=== PATIENT | female | born 1980 | race Caucasian/White ===

== ENCOUNTER → 2018-10-27 09:56 | Outpatient (CLI) | payer OTHER, SELFPAY ==
[2018-09-17 09:25] VITALS: BMI 26.0
--- NOTE | 2018-10-27 10:05 | BI_ITS ---
MAMMOGRAPHY - BILATERAL SCREENING REASON FOR EXAM: Female, 38 years old. Routine annual screening examination. PERTINENT HISTORY: Non-contributory. TECHNIQUE: Digital bilateral breast triny (3D mammographic acquisition) in the CC and MLO projections. 2-D mediolateral oblique (MLO) and craniocaudad (CC) views of both breasts were obtained. CAD: Full Field Digital Mammography with Computer Added Detection was performed. COMPARISON: None. Baseline examination. FINDINGS: Breast Composition: The breasts are extremely dense, which lowers the sensitivity of mammography. There are no dominant masses or suspicious calcifications. Small left axillary lymph nodes. No other significant abnormalities are identified. BI/SCREEN MAMM (CAD) W/TRINY BILAT IMPRESSION: Negative screening mammogram. Yearly followup mammogram recommended. (A) ASSESSMENT CATEGORY: BIRADS Category 2: Benign. A letter regarding these results will be sent to the patient by the facility within 30 days. Approximately 10% of breast cancers are not detected by mammography. A normal mammogram should not delay biopsy of a clinically suspicious abnormality. [id number] Electronically Signed: Ld Antunez MD at 9:15 EST , Service support ,
== END ==
PROVIDERS: Family Provider Family Medicine; PCP Family Medicine; Referring Provider Obstetrics & Gynecology; Visit Provider Obstetrics & Gynecology
DX: Z12.31 Encounter for screening mammogram for malignant neoplasm of breast (principal)
CPT/HCPCS: 77063; 77067

== ENCOUNTER → 2019-09-30 | Outpatient (CLI) | payer OTHER, SELFPAY ==
[2019-09-30 09:50] VITALS: BMI 26.0
[2019-10-04 13:05] LABS: HPV APTIMA, High Risk Negative (Negative)
== END | disposition home or self-care (01) ==
LOC: LABSPEC 14:44
PROVIDERS: PCP Family Medicine; Visit Provider Obstetrics & Gynecology
DX: Z12.4 Encounter for screening for malignant neoplasm of cervix (principal)
CPT/HCPCS: 87624; 88175; G0145

== ENCOUNTER → 2019-10-08 | Outpatient (CLI) | payer OTHER, SELFPAY ==
[2019-09-30 09:50] VITALS: BMI 26.0
[2019-10-08 10:58] LABS: Cholesterol 178 mg/dL (200); Glucose 104 mg/dL (74-106); High Density Lipoprotein 70 mg/dL; Thyroid Stim Hormone (TSH) 3.67 uIU/mL (0.358-3.74); Triglycerides 125 mg/dL; Very Low Density Lipoprotein 25 mg/dL (5-40)
== END | disposition home or self-care (01) ==
LOC: PAVLAB 09:08
PROVIDERS: PCP Family Medicine; Referring Provider Obstetrics & Gynecology; Visit Provider Obstetrics & Gynecology
DX: Z13.1 Encounter for screening for diabetes mellitus (principal); Z13.220 Encounter for screening for lipoid disorders; Z13.29 Encounter for screening for other suspected endocrine disorder
CPT/HCPCS: 36415; 80061; 82947; 84443

== ENCOUNTER → 2019-10-29 | Outpatient (CLI) | payer OTHER, SELFPAY ==
[2018-09-17 09:25] VITALS: BMI 26.0
[2019-09-30 09:50] VITALS: BMI 26.0
--- NOTE | 2019-10-29 11:20 | BI_ITS ---
MAMMOGRAPHY - BILATERAL SCREENING REASON FOR EXAM: Female, 39 years old. Routine annual screening examination. PERTINENT HISTORY: Bilateral screening TECHNIQUE: Digital bilateral breast triny (3D mammographic acquisition) in the CC and MLO projections. 2-D mediolateral oblique (MLO) and craniocaudad (CC) views of both breasts were obtained. CAD: Full Field Digital Mammography with Computer Added Detection was performed. COMPARISON: Previous mammogram obtained on 10/27/2018 FINDINGS: Breast Composition: Dense central breast fracture There are no dominant masses or suspicious calcifications. No other significant abnormalities are identified. BI/SCREEN MAMM (CAD) W/TRINY BILAT IMPRESSION: Stable bilateral screening mammogram. Yearly follow-up mammogram recommended. (A) ASSESSMENT CATEGORY: BIRADS Category 1: Negative. A letter regarding these results will be sent to the patient by the facility within 30 days. Approximately 10% of breast cancers are not detected by mammography. A normal mammogram should not delay biopsy of a clinically suspicious abnormality. [id number] Electronically Signed: Raciel Bobby, at 17:08 EST Tel , Service support ,
== END | disposition home or self-care (01) ==
LOC: OPBI 11:20
PROVIDERS: PCP Family Medicine; Referring Provider Obstetrics & Gynecology; Visit Provider Obstetrics & Gynecology
DX: Z12.31 Encounter for screening mammogram for malignant neoplasm of breast (principal)
CPT/HCPCS: 77063; 77067

== ENCOUNTER → 2020-10-26 09:12 | Outpatient (CLI) | payer OTHER, SELFPAY ==
[2020-10-01 11:53] VITALS: BMI 28.0
--- NOTE | 2020-10-26 09:24 | US_ITS ---
STUDY: ULTRASOUND BREAST - LEFT REASON FOR EXAM: Female, 40 years old. Palpable lump left breast. TECHNIQUE: Axial and longitudinal images of the LEFT breast were performed with a high resolution ultrasound transducer. # OF IMAGES: 31 COMPARISON: Comparison is made with prior mammogram done earlier today. FINDINGS: LEFT Breast: The upper outer quadrant of the left breast was examined by ultrasound. No sonographic abnormalities US/Breast Limited Unilateral IMPRESSION: No sonographic abnormality is seen. ASSESSMENT CATEGORY: BIRADS Category 1: Negative. A letter regarding these results will be sent to the patient by the facility within 30 days. Electronically Signed: Ld Antunez MD at 12:23 EST , Service support ,
--- NOTE | 2020-10-26 09:24 | BI_ITS ---
MAMMOGRAPHY - BILATERAL DIAGNOSTIC REASON FOR EXAM: Female, 40 years old. Left breast lump. PERTINENT HISTORY: Grandmother with breast cancer. TECHNIQUE: Digital bilateral breast atiya (3D mammographic acquisition) in the CC and MLO projections. 2-D mediolateral oblique (MLO) and craniocaudad (CC) views of both breasts were obtained. CAD: Full Field Digital Mammography with Computer Added Detection was performed. COMPARISON: Comparison is made with prior examination dated 10/29/2019 and 10/27/2018. FINDINGS: Breast Composition: The breasts are extremely dense, which lowers the sensitivity of mammography. There are no dominant masses or suspicious calcifications. Stable benign-appearing bilateral axillary lymph nodes. No other significant abnormalities are identified. There has been no significant change since the prior study. BI/DIAG MAMM W/CAD, BILAT IMPRESSION: Stable bilateral diagnostic mammogram. With the patient''s history of a palpable lump in the left breast, correlation with ultrasound is recommended. ASSESSMENT CATEGORY: BIRADS Category 0: Incomplete. Need additional imaging evaluation. A letter regarding these results will be sent to the patient by the facility within 30 days. Approximately 10% of breast cancers are not detected by mammography. A normal mammogram should not delay biopsy of a clinically suspicious abnormality. Electronically Signed: Ld Antunez MD at 11:28 EST , Service support ,
== END ==
PROVIDERS: PCP Family Medicine; Referring Provider Obstetrics & Gynecology; Visit Provider Obstetrics & Gynecology
DX: N63.20 Unspecified lump in the left breast, unspecified quadrant (principal)
CPT/HCPCS: 76642; 77062; 77066; G0279

== ENCOUNTER → 2022-02-03 | Outpatient (CLI) | payer OTHER, SELFPAY ==
--- NOTE | 2022-02-03 10:10 | BI_ITS ---
MAMMOGRAPHY - BILATERAL SCREENING REASON FOR EXAM: Female, 41 years old. Routine annual screening examination. PERTINENT HISTORY: Grandmother with breast cancer. TECHNIQUE: Digital bilateral breast triny (3D mammographic acquisition) in the CC and MLO projections. 2-D mediolateral oblique (MLO) and craniocaudad (CC) views of both breasts were obtained. CAD: Full Field Digital Mammography with Computer Added Detection was performed. COMPARISON: Comparison is made with prior study dated 10/26/2020 and 10/29/2019. FINDINGS: Breast Composition: The breasts are extremely dense, which lowers the sensitivity of mammography. There are no dominant masses or suspicious calcifications. Stable small bilateral axillary lymph nodes. No other significant abnormalities are identified. There has been no significant change since the prior study. BI/SCRN MAMM (CAD)W/TRINY BILAT IMPRESSION: Stable bilateral screening mammogram. Yearly follow-up mammogram recommended. (A) ASSESSMENT CATEGORY: BIRADS Category 2: Benign. A letter regarding these results will be sent to the patient by the facility within 30 days. Approximately 10% of breast cancers are not detected by mammography. A normal mammogram should not delay biopsy of a clinically suspicious abnormality. [id number] Electronically Signed: Ld Antunez MD at 11:06 EDT ,
[2022-02-03 12:02] LABS: Thyroid Stim Hormone (TSH) 1.64 uIU/mL (0.358-3.74)
[2022-02-03 13:24] LABS: Vitamin D,25 Hydroxy 64.4 ng/mL
[2022-02-09 21:07] LABS: HPV APTIMA, High Risk Negative (Negative)
== END | disposition home or self-care (01) ==
PROVIDERS: Referring Provider Obstetrics & Gynecology; Visit Provider Obstetrics & Gynecology
DX: Z12.31 Encounter for screening mammogram for malignant neoplasm of breast (principal); Z12.4 Encounter for screening for malignant neoplasm of cervix; Z13.29 Encounter for screening for other suspected endocrine disorder; Z13.21 Encounter for screening for nutritional disorder
CPT/HCPCS: 36415; 77063; 77067; 82306; 84443; 87624; 88175; G0145

== ENCOUNTER → 2023-02-27 | Outpatient (CLI) | payer OTHER, SELFPAY ==
--- NOTE | 2023-02-27 10:31 | BI_ITS ---
MAMMOGRAPHY - BILATERAL SCREENING REASON FOR EXAM: Female, 42 years old. Routine annual screening examination. PERTINENT HISTORY: Grandmother with breast cancer. TECHNIQUE: Digital bilateral breast triny (3D mammographic acquisition) in the CC and MLO projections. 2-D mediolateral oblique (MLO) and craniocaudad (CC) views of both breasts were obtained. CAD: Full Field Digital Mammography with Computer Added Detection was performed. COMPARISON: Comparison is made with prior study dated February 03, 2022 and October 26, 2020. FINDINGS: Breast Composition: The breasts are extremely dense, which lowers the sensitivity of mammography. There are no dominant masses or suspicious calcifications. Stable small benign-appearing bilateral axillary lymph nodes. No other significant abnormalities are identified. There has been no significant change since the prior study. BI/SCRN MAMM (CAD)W/TRINY BILAT IMPRESSION: Stable bilateral screening mammogram. Yearly follow-up mammogram recommended. (A) ASSESSMENT CATEGORY: BIRADS Category 2: Benign. A letter regarding these results will be sent to the patient by the facility within 30 days. Approximately 10% of breast cancers are not detected by mammography. A normal mammogram should not delay biopsy of a clinically suspicious abnormality. [id number] Electronically Signed: Ld Antunez MD at 12:18 EDT ,
[2023-03-02 16:09] LABS: HPV APTIMA, High Risk Negative (Negative)
== END | disposition home or self-care (01) ==
PROVIDERS: Referring Provider Obstetrics & Gynecology; Visit Provider Obstetrics & Gynecology
DX: Z12.31 Encounter for screening mammogram for malignant neoplasm of breast (principal); Z12.4 Encounter for screening for malignant neoplasm of cervix
CPT/HCPCS: 77063; 77067; 87624; 88175; G0145

== ENCOUNTER → 2024-03-04 | Outpatient (CLI) | payer MEDICAID, SELFPAY ==
--- NOTE | 2024-03-04 14:00 | BI_ITS ---
MAMMOGRAPHY - BILATERAL SCREENING 3-D TOMOSYNTHESIS REASON FOR EXAM: Female, 43 years old. breast cancer screening PERTINENT HISTORY: No significant family history. TECHNIQUE: 2-D mammograms and 3-D Tomosynthesis of the breast (s) were performed. CAD was performed. COMPARISON: 03/01/2023 FINDINGS: The breast composition is Extermely dense tissue. Scattered benign calcifications are seen. No dense spiculated masses or suspicious microcalcifications are identified. No architectural distortion is identified. There is no skin thickening or retraction. There has been no significant change since the prior study. BI/SCRN MAMM (CAD)W/TRINY BILAT IMPRESSION: No mammographic signs of malignancy. Routine yearly mammograms recommended. ASSESSMENT CATEGORY: BIRADS Category 1: Negative. A letter regarding these results will be sent to the patient by the facility within 30 days. FOLLOW UP RECOMMENDATION: Yearly follow up mammogram recommended. (A) Approximately 10% of breast cancers are not detected by mammography. A normal mammogram should not delay biopsy of a clinically suspicious abnormality. Electronically Signed: Pierre Reyes MD at 16:41 EDT ,
== END | disposition home or self-care (01) ==
LOC: OPBI 14:00
PROVIDERS: Referring Provider Obstetrics & Gynecology; Visit Provider Obstetrics & Gynecology
DX: Z12.31 Encounter for screening mammogram for malignant neoplasm of breast (principal)
CPT/HCPCS: 77063; 77067

== ENCOUNTER → 2025-03-05 | Outpatient (CLI) | payer BC, SELFPAY ==
--- NOTE | 2025-03-05 10:45 | BI_ITS ---
EXAM: SCRN MAMM (CAD)W/TRINY BILAT DATE: 03/05/2025 CLINICAL HISTORY: F, Age 44 y/o , SCREEN FOR BREAST CANCER TECHNIQUE: SCRN MAMM (CAD)W/TRINY BILAT COMPARISON: Prior exam(s) dated 03/04/2024, 02/27/2023, 02/03/2022. FINDINGS: TISSUE DENSITY: The breasts are extremely dense, which lowers the sensitivity of mammography. The mammogram demonstrates that the patient has dense breasts. Supplemental screening with whole breast ultrasound or MRI may be considered for further evaluation. Bilateral Breast Mammographic Findings: No significant masses, calcifications or other abnormalities are identified. BI/SCRN MAMM (CAD)W/TRINY BILAT IMPRESSION: There is no mammographic evidence of malignancy. OVERALL FINAL ASSESSMENT BI-RADS 1: NEGATIVE. RECOMMEND ANNUAL MAMMOGRAPHIC SCREENING. RECOMMENDATION: Routine annual follow-up in 1 Year A letter with findings and recommendations will be mailed to the patient. Reading Location: [id number]
--- OUTSIDE RECORDS SUMMARY | 2025-03-05 21:38 | XMS RPT_ITS | CCD ---
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 Vanessa Reeder Attending Provider [phone] Care Physician, No Primary Primary Care Provider Unavailable Care Physician, No Primary Referring Provider Un available Care Physician, No Primary Primary Care Provider Unavailable Care Physician, No Primary Referring Provider Un available Dr. Vanessa Owens Attending Provider [phone] Care Physician, No Primary Referring Unava ilable Marcanthsarah, Vanessa Attending Unavailable Care Physician, No Primary Primary Care Unava ilable Care Physician, No Primary Referring Unava ilable Marcanthony, Vanessa Attending Unavailable Care Physician, No Primary Primary Care Unava ilable Care Physician, No Primary Primary Care Unava ilable Marcanthony, Vanessa Attending Unavailable Marcanthsarah, Vanessa Referring Unavailable Marcanthony, Vanessa Attending Unavailable Marcanthsarah, Vanessa Referring Unavailable Care Physician, No Primary Primary Care Unava ilable Care Physician, No Primary Primary Care Provider Unavailable Dr. Vanessa Owens MD Attending Provider Dr. Vanessa Owens MD Referring Provider [phone] Care Physician, No Primary Referring Provider Un available Allergies Allergy Classification Reported Allergen(s) Allergy Type Date of Onset Reaction(s) Facility (2 sources) erythromycin Drug Allergy 7 [facility] (2 sources) Cat Propensity to adverse reactions 6 [facility] (5 sources) Erythromycin Drug Allergy 5 GI Upset [facility] Work Phone: (2 sources) Fish Propensity to adverse reactions 6 [facility] (2 sources) SEASONAL [Other] Propensity to adverse reactions 6 [facility] (1 source) Erythromycin Drug Allergy 4 [facility] Repository Medications Current Medications Medication Drug Class(es) Dates Sig (Normalized) Sig (Original) Desogestrel-Ethinyl Estradiol (8 sources) Progestin, Estrogen Start: 12-25-2024 Desogestrel-Ethinyl Estradiol (Apri) 0.15-0.03 mg tablet Active 1 {tbl} PO daily 84 4 December 25, 2024 11:02am take only active pills discard inactive start new pack immediately Start: 02-21-2024 End: 12-25-2024 Desogestrel-Ethinyl Estradio l (Apri) 0.15-0.03 mg tablet Discontinued 1 {tbl} PO daily 84 4 February 21, 2024 3:08pm December 25, 2024 11:02am take only active pills discard inactive start new pack immediately Start: 10-12-2023 End: 02-21-2024 Desogestrel-Ethinyl Estradio l (Apri) 0.15-0.03 mg tablet Discontinued 1 {tbl} PO daily 84 October 12, 2023 9:45am February 21, 2024 3:08pm take only active pills discard inactive start new pack immediately Start: 10-11-2023 End: 10-12-2023 Desogestrel-Ethinyl Estradio l (Apri) 0.15-0.03 mg tablet Discontinued 1 {tbl} PO daily 84 October 11, 2023 1:45pm October 12, 2023 9:45am take only active pills discard inactive start new pack immediately Start: 08-05-2022 End: 10-11-2023 Desogestrel-Ethinyl Estradio l (Apri) 0.15-0.03 mg tablet Discontinued 1 {tbl} PO daily 84 August 05, 2022 5:24pm October 11, 2023 1:45pm take only active pills discard inactive start new pack immediately Start: 08-05-2022 Desogestrel-Et hinyl Estradiol (Apri) 0.15-0.03 mg tablet Active 1 TABLET PO daily 84 August 05, 2022 5:24pm take only active pills discard inactive start new pack immediately Start: 06-17-2022 End: 08-05-2022 Desogestrel-Ethinyl Estradio l (Apri) 0.15-0.03 mg tablet Discontinued 1 {tbl} PO daily 31 08June 17, 2022 12:00am August 05, 2022 5:25pm take only active pills discard inactive start new pack immediately Start: 06-17-2022 End: 08-05-2022 Desogestrel-Ethinyl Estradio l (Apri) 0.15-0.03 mg tablet Discontinued 1 TABLET PO daily June 17, 2022 12:00am August 05, 2022 5:25pm take only active pills discard inactive start new pack immediately Completed/Discontinued Medications Medication Drug Class(es) Dates Sig (Normalized) Sig (Original) medroxyPROGESTERone acetate 10 mg oral tablet (4 sources) Progestin Start: End: take 1 tablet by mouth every month Medroxyprogesterone (Provera) 10 mg tablet Discontinued 10 mg PO daily 06 15June 03, 2022 5:07pm June 17, 2022 4:28pm take for ten days out of every month Start: 04-22-2022 End: 06-03-2022 Medroxyprogesterone (Provera ) 10 mg tablet Discontinued 10 mg PO daily 01 10April 22, 2022 12:00am June 03, 2022 5:09pm take for five days if neg preg test and no menses after 35-40 days Problems Problem Classification Problem Date Documented Date Episodic/Chronic Cancer of cervix (1 source) Atypical squamous cells of undetermined significance on cytologic smear of cervix (ASC-US); Translations: [Papanicolaou smear of cervix with atypical squamous cells of undetermined significance (ASC-US)] Episodic Diabetes mellitus without complication (1 source) Hyperglycemia; Translations: [Impaired fasting glucose] Episodic Menstrual disorders (2 sources) Oligomenorrhea; Translations: [Oligomenorrhea, unspecified] 06-03-2022 Chronic Comment on above: likely perimenopausa l, cyclic provera ordered. Nonmalignant breast conditions (4 sources) Breast lump; Translations: [Unspecified lump in the left breast, unspecified quadrant] 06-02-2022 Episodic Comment on above: increased right mansi st density- reviewed with patient to follow and alert if feels anything clinically significant, screening imaging WNL diag mamm and us ord ered Other female genital disorders (5 sources) Cervical atypism; Translations: [Dysplasia of cervix uteri, unspecified] Onset: 07-01-2021 07-01-2021 Episodic Comment on above: HPV negative, pap in 2022 Other nutritional; endocrine; and metabolic disorders (1 source) Body mass index 25-29 - overweight; Translations: [Overweight] Episodic Other screening for suspected conditions (not mental disorders or infectious disease) (2 sources) Encounter for screening mammogram for malignant neoplasm of breast; Translations: [Encounter for screening mammogram for malignant neoplasm of breast] Onset: 03-14-2024 Episodic Residual codes; unclassified (3 sources) History of fourth degree perineal laceration; Translations: [Personal history of other complications of , childbirth and the puerperium] 02-03-2022 Episodic Residual codes; unclassified (2 sources) Personal history of other complications of , childbirth and the puerperium; Translations: [Personal history of other genital system and obstetric disorders] Episodic Thyroid disorders (4 sources) Goiter; 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 [place] [address] OFFICE VISIT Date of Service: 03/04/24 MR#: [id number] Acct: [id number] Name: NATA BURNS Rep #: [id number] : 1980 Provider: Dr. 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 Vanessa Owens MD) History of headache Family History Mother Diabetes Social History (Updated 03/04/24 @ 14:46 by Katrin Clay) number of children: 3 current occupational status: unemployed current occupation: not currently Smoking Status: Never smoker alcohol intake: current details: social substance use type: does not use caffeine: Yes what type of physical activity do you participate in: none seatbelt use: always do you feel safe at home: Yes additional social history: Stephon- Kimmy josy History 3 Elective abortions Hx Para 3 Spontaneous abortions Hx # Term Pregnancies Ectopic pregnancies Hx # Pregnancies Multiple births # of living children Past Pregnancies Del. Date Name GA/Weeks Outcome Route Bth Weight Gen Labor Lgth Anesthesia Del Locatn Provider FOB Unknown 2002 Onesimo 40 live - full term 6lbs 14oz Male [facility] Bare Unknown Augusto live - full term Male [facility] Canfie ld Unknown 2010 Keyla 40 live - full term 8lbs 4oz Female [facility] CHERELLE, Tizanno HPI Encounter for routine gynecological examination Details: NATA BURNS is a 43 year old who presents for annual exam. lost to pancreatic cancer, coping appropriately. Last PAP: 2022 History of abnormal PAP: Last mammogram: today History of abnormal mammogram: Colon cancer screening: due Other preventative health care screenings: no PCP Female Reproductive History Cycle Length: 21-35 Bleeding Duration: 5 Questions: metorrhagia: No, sexually active: Yes, dyspareunia: No and PCB: No Menopausal Symptoms: No hot flashes, No night sweats, No weight change, Yes mood changes, No difficulty concentrating, Yes sleep problems and No change in libido ROS Const Constitutional: Reports as per HPI; Denies fatigue, increased appetite, poor appetite, night sweats, weight gain or weight loss Cardio Card: Denies chest pain Resp Resp: Denies cough or dyspnea GI GI: Reports as per HPI; Denies abdominal pain, bloating, constipation, nausea or vomiting : Reports as per HPI and other; Denies difficulty voiding, dysuria, hematuria, hot flashes, nipple discharge, pelvic pain, prolapse symptoms, urinary frequency, urinary incontinence, urinary urgency, vaginal discharge, vaginal dryness, vaginal odor or vaginal pruritus Skin Skin/Breast: Denies changing lesions, breast mass, breast pain, breast skin changes or nipple discharge Psych Psych: Denies anxiety, change in libido, depression or difficulty concentrating Exam Const General: cooperative, healthy appearing, comfortable, no acute distress, well developed and well groomed [facility] Head: normal to inspection and normocephalic Ears: hearing grossly normal bilaterally and external ears normal Nose: external nose normal Face and sinus: normal facial exam Neck Neck: normal visual inspection, full ROM and no lymphadenopathy Thyroid: thyroid normal Chest Chest palpation inspection: normal inspection of the chest Breast inspection: normal inspection of the breasts and normal inspection of the axillae Breast palpation: palpation of the breasts abnormal (increased density right upper), normal palpation of the axillae and no axillary lymphadenopathy Resp Effort Inspection: normal respiratory effort GI Inspection: normal to inspection and non-distended Palpation: soft, no hepatosplenomegaly and no guarding General: bladder normal to palpation External Female Exam: normal external appearance, normal appearance of the urethra and no lesions Urethra: normal appearance of the urethra and normal palpation Speculum Exam - Vagina: normal appearance of the vagina and normal vaginal dis (more content not included)... Normal [facility] SCRN MAMM (CAD)W/TRINY [place] n 03-04-2024 SCRN MAMM (CAD)W/TRINY RADHA [facility] Imaging Services [address] [facility] [place] [address] SCRN MAMM (CAD)W/TRINY BILAT MR#: [id number] Acct: [id number] Name: NATA BURNS Rep #: [id number] : 1980 F 43 From: Pierre Reyes MD PCP: Care Physician,No Primary Status: REG CLI Study: SCRN MAMM (CAD)W/TRINY BILAT Date of Exam: 09/27 Exam# [id number] Ordering Dr: Vanessa Owens [id number] MAMMOGRAPHY - BILATERAL SCREENING 3-D TOMOSYNTHESIS REASON FOR EXAM: Female, 43 years old. breast cancer screening PERTINENT HISTORY: No significant family history. TECHNIQUE: 2-D mammograms and 3-D Tomosynthesis of the breast (s) were performed. CAD was performed. COMPARISON: 03/01/2023 FINDINGS: The breast composition is Extermely dense tissue. Scattered benign calcifications are seen. No dense spiculated masses or suspicious microcalcifications are identified. No architectural distortion is identified. There is no skin thickening or retraction. There has been no significant change since the prior study. BI/SCRN MAMM (CAD)W/TRINY BILAT IMPRESSION: No mammographic signs of malignancy. Routine yearly mammograms recommended. ASSESSMENT CATEGORY: BIRADS Category 1: Negative. A letter regarding these results will be sent to the patient by the facility within 30 days. FOLLOW UP RECOMMENDATION: Yearly follow up mammogram recommended. (A) Approximately 10% of breast cancers are not detected by mammography. A normal mammogram should not delay biopsy of a clinically suspicious abnormality. Electronically Signed: Pierre Reyes MD at 16:41 EDT , CC: Dr. Vanessa Owens MD; No Primary Care Physician Delivery Recruiter: Signed Normal [facility] Cervical or vagninal specime n microscopic examination by cytology stain (reported asOrdered By: Vanessa Owens on 02-27-2023 Cytology report Cyto stain Doc (Cvx/Vag) Comment . [facility] Comment on above: The Pap smear is a s creening test designed to aid in thedetection of premalignant and malignant conditions of theuterine cervix. It is not a diagnostic procedure andshould not be used as the sole means of detecting cervicalcancer. Both false-positive and false-negative reports dooccur. Detection in cervical specim en of any of human papilloma virus (HPV) 16, 18, 31, 33,Ordered By: Vanessa Owens on 02-27-2023 HPV 16+18+31+33+35+39+45+ 51+52+56+58+59+66+68 DNA Probe+sig amp Ql (Cvx) Negative Negative [facility] Comment on above: This nucleic acid am plification test detects fourteen high- risk HPV types (16,18,31,33,35,39,45,51,52,56,58,59,66,68)without differentiation. Laboratory - CytologyOrdered By: Vanessa Owens on 02-27-2023 Traveling Construction Superintendent Cyto stain Nom (Cvx/Vag) [ID] Comment . [facility] Comment on above: Chirag Mora, Cytotec hnologist Laboratory - Miscellaneous t estsOrdered By: Vanessa Owens on 02-27-2023 Service comment (Unsp spec) [Interp] Comment . [facility] Comment on above: This liquid based Th inPrep(R) pap test was screened withthe use of an image guided system. Service comment (Unsp spec) [Interp] . . [facility] Liquid-based cerv Pap + CT/G C by MANISHA w reflex to high-risk HPV for ASCUSOrdered By: Vanessa Owens on 02-27-2023 Cytology report Cyto stain.thin prep Doc (Cvx/Vag) Comment . [facility] Comment on above: Criteria not met, HP V Genotype not performed.Performed at: [address] [id number] Director: Grecia Jensen MD, Phone: [phone] at: [facility] Lab[address] [id number] Director: Jeanie Rollins MD, Phone: [phone] at: =G - [facility] [address] [place] [id number] Director: Jeanie Rollins MD, Phone: [phone] No Panel InformationOrdered By: Vanessa Owens on 02-27-2023 Pathology report final diagnosis Narrative Comment . [facility] Comment on above: NEGATIVE FOR INTRAEP ITHELIAL LESION OR MALIGNANCY. Jennifer 02-14-2022 JOEN Telephone (FAMPWS) NATA BURNS ([id number]) 1980 F Date Time Provider Department 02/14/22 WADR LINDSAY During your visit today, we recorded the following information about you: Ward Lindsay APRN.HARPER DIAZ 02/14/2022 5:39 PM Signed Team - Inform patient she has increased blood sugar. She is borderline prediabetic. Need to adhere to a low-cholesterol, low-fat diet, low carb diet. Therapeutic lifestyle changes is recommended. Please ensure that they are eating lots of fruits and vegetables, eat lean cuts of meat, and limit surgry drinks. Perform regular physical activity and limit fast food. Recheck labs in 12 months. Ward Lindsay APRN.CNP, DNP Brittany Workman Cma 02/15/2022 8:33 AM Signed [employer] message sent to patient Daysi Pena Cma Allergies As of Date: 02/14/2022 Noted Allergy Reaction CATS 05/05/2006 ERYTHROMYCIN 07/25/2005 8 - GI Upset FISH 05/05/2006 SEASONAL [Other] 05/05/2006 Date Reviewed: 01/24/2022 Reviewed by: Daysi Pena Cma - Fully Assessed Reason for Visit: Results [95] Primary Visit Diagnosis:Impaired fasting glucose [R73.01] Problem List As Of Date 02/14/2022 Noted Resolved Supervision of other normal [Z34.80] 11/17/2010 07/29/2013 Cervical atypia [N87.9] 07/01/2021 Normal pelvic exam [Z01.419] 07/05/2017 Impaired fasting glucose [R73.01] 02/14/2022 Encounter Status:Closed by WORKMAN DAYSI CALL on 02/15/22 Normal [facility] Glucose p fast SerPl-mCncon 02-09-2022 Glucose post fast [Mass/Vol] 116 mg/dL High 74-99 [facility] Comment on above: Order Comment: Speci men Type: BLOOD SPECIMEN Ordering Facility: [facility] Address: [address] [place] [address] Result Comment: [place] Diabetes Association guidelines state that a diabetes mellitus diagnosis is preliminarily made when the fasting plasma glucose meets or exceeds 126 mg/dL. In the absence of unequivocal hyperglycemia, results should be confirmed with repeat testing. Patients are at increased risk for diabetes mellitus (prediabetes) when the fasting glucose is 100 to 125 mg/dL. Performed By: #### 1 558-6 #### [facility] CLIA [id number] [address] [place] [address] [place] HGB A1Con 02-09-2022 Average glucose Estimated from glycated hemoglobin (Bld) [Mass/Vol] 111 mg/dL Normal [facility] Comment on above: Order Comment: Speci men Type: BLOOD SPECIMEN Ordering Facility: [facility] Address: [address] [place] [address] Result Comment: eAG: (Estimated average glucose) is a calculated value from HgbA1c and is inside sales account representative of the average blood glucose level in the last 2-3 month period. Performed By: #### H BA1C #### [facility] CLIA [id number] [address] [place] [address] [place] HbA1c (Bld) [Mass fraction] 5.5 % Normal 4.3-5.6 [facility] Comment on above: Order Comment: Speci men Type: BLOOD SPECIMEN Ordering Facility: [facility] Address: [address] [place] [address] Result Comment: [place] Diabetes Association guidelines indicate that patients with HgbA1c in the range 5.7-6.4% are at increased risk for development of diabetes, and intervention by lifestyle modification may be beneficial. HgbA1c greater or equal to 6.5% is considered diagnostic of diabetes. Performed By: #### H BA1C #### [facility] CLIA [id number] [address] [place] [address] [address] [facility] No Panel Informationon 02-03 Thyroid Stimulating Hormone (TSH) 1.64 uIU/mL 0.358-3.74 [facility] Work Phone: Vitamin D 25-Hydroxy 64.4 ng/mL [facility] Work Phone: Comment on above: Vitamin D 25(OH) Sta tus Range Deficiency <20 ng/mL (50nmol/L) Insufficiency 20 - 30 ng/mL (50 - 75 nmol/L) Sufficiency 30 - 100 ng/mL (75 - 250 nmol/L) Toxicity >100 ng/mL (>250 nmol/L) Jennifer 01-28-2022 MARIBEL Telephone ([place]) NATA BURNS ([id number]) 1980 F Date Time Provider Department 01/28/22 WARD LINDSAY During your visit today, we recorded the following information about you: Ward Lindsay APRN.HARPER DIAZ 01/28/2022 4:15 PM Signed Team - Inform the patient that her cholesterol levels look good. Her fasting blood sugar though was elevated. She needs to perform a repeat fasting blood sugar and hemoglobin A1c. She can complete this next week. ASSESSMENT/PLAN: 1. Elevated fasting glucose - ICD9: 790.21, ICD10: R73.01 - HGB A1C - GLUCOSE FASTING BLD Ward Lindsay APRN.REGISTERED DIETICIAN, DNP [facility] Linda Lyons RN 01/28/2022 4:36 PM Signed Pt called and is notified of providers results and instructions. Pt voices understanding. Linda Lyons RN Allergies As of Date: 01/28/2022 Noted Allergy Reaction CATS 05/05/2006 ERYTHROMYCIN 07/25/2005 8 - GI Upset FISH 05/05/2006 SEASONAL [Other] 05/05/2006 Date Reviewed: 01/24/2022 Reviewed by: Daysi Pena Immigration Services Officer - Fully Assessed Reason for Visit: Results [95] Orders [681] Primary Visit Diagnosis:Elevated fasting glucose [R73.01] Order(s):HGB A1C [EZUKB5B] Order #: [id number] FUTURE GLUCOSE FASTING BLD [SQGLF] Order #: [id number] FUTURE Problem List As Of Date 01/28/2022 Noted Resolved Supervision of other normal [Z34.80] 11/17/2010 07/29/2013 Cervical atypia [N87.9] 07/01/2021 Normal pelvic exam [Z01.419] 07/05/2017 Encounter Status:Closed by LINDA LYONS on 01/28/22 Normal [facility] Glucose p fast SerPl-ncon 01-27-2022 Glucose post fast [Mass/Vol] 120 mg/dL High 74-99 [facility] Comment on above: Order Comment: Speci men Type: BLOOD SPECIMEN Ordering Facility: [facility] Address: [address] [place] [address] Result Comment: [place] Diabetes Association guidelines state that a diabetes mellitus diagnosis is preliminarily made when the fasting plasma glucose meets or exceeds 126 mg/dL. In the absence of unequivocal hyperglycemia, results should be confirmed with repeat testing. Patients are at increased risk for diabetes mellitus (prediabetes) when the fasting glucose is 100 to 125 mg/dL. Performed By: #### 1 558-6 #### [facility] CLIA [id number] [address] [place] [address] [place] [address] [place] LIPID PANEL BASICon 01-28-20 22 Cholesterol [Mass/Vol] 166 mg/dL Normal <200 [facility] Comment on above: Order Comment: Maritzai men Type: BLOOD SPECIMEN Ordering Facility: [facility] Address: [address] [place] [address] Result Comment: <200 mg/dL, Desirable 200-239 mg/dL, Borderline high >239 mg/dL, High Performed By: #### L IPB #### [facility] CLIA [id number] [address] [place] [address] [place] Cholesterol in HDL [Mass/Vol] 54 mg/dL Normal >39 [facility] Comment on above: Order Comment: Maritzai men Type: BLOOD SPECIMEN Ordering Facility: [facility] Address: [address] [place] [address] Result Comment: 40-5 9 mg/dL, Acceptable >59 mg/dL, High: Negative risk factor for coronary heart disease <40 mg/dL, Low: Positive risk factor for coronary heart disease Performed By: #### L IPB #### [facility] CLIA [id number] [address] [place] [address] [place] Cholesterol in LDL [Mass/Vol] 99 mg/dL Normal <100 [facility] Comment on above: Order Comment: Leonardo men Type: BLOOD SPECIMEN Ordering Facility: [facility] Address: [address] [place] [address] Result Comment: <100 mg/dL, Optimal 100-129 mg/dL, Near optimal/above optimal 130-159 mg/dL, Borderline high 160-189 mg/dL, High >189 mg/dL, Very high Secondary prevention optimal LDL Cholesterol levels are recommended to be < 70 mg/dL Performed By: #### L IPB #### [facility] CLIA [id number] [address] [place] [address] [place] Cholesterol in LDL/Cholesterol in HDL [Mass ratio] 1.83 {ratio} Normal <2.54 [facility] Comment on above: Order Comment: Maritzai men Type: BLOOD SPECIMEN Ordering Facility: [facility] Address: [address] [place] [address] Result Comment: Karolyn vasquez: 1. National Cholesterol Education Program ATP III Guideline At-A-Glance Quick Desk Reference: National Heart, Lung, and Blood [place]. National Institutes of Health. 2001: NIH Publication No. 01-3305. 2. An International Atherosclerosis Society position paper: global recommendations for the management of dyslipidemia: executive summary, Atherosclerosis. 2014: 232(2):410-413. Performed By: #### L IPB #### [facility] CLIA [id number] [address] [place] [address] [place] Cholesterol in VLDL [Mass/Vol] 13 mg/dL Normal <30 [facility] Comment on above: Order Comment: Leonardo lemus Type: BLOOD SPECIMEN Ordering Facility: [facility] Address: [address] [place] [address] Performed By: #### L IPB #### [facility] CLIA [id number] [address] [place] [address] [place] Cholesterol non HDL [Mass/Vol] 112 mg/dL Normal <130 [facility] Comment on above: Order Comment: Leonardo lemus Type: BLOOD SPECIMEN Ordering Facility: [facility] Address: [address] [place] [address] Result Comment: <130 mg/dL, Optimal 130-159 mg/dL, Near optimal/above optimal 160-189 mg/dL, Borderline high 190-219 mg/dL, High >219 mg/dL, Very high Secondary prevention optimal non HDL Cholesterol levels are recommended to be <100 mg/dL Performed By: #### L IPB #### [facility] CLIA [id number] [address] [place] [address] [place] Cholesterol.total/Cho lesterol in HDL [Mass ratio] 3.07 {ratio} Normal <5.10 [facility] Comment on above: Order Comment: Leonardo lemus Type: BLOOD SPECIMEN Ordering Facility: [facility] Address: [address] [place] [address] Performed By: #### L IPB #### [facility] CLIA [id number] [address] [place] [address] FASTING TIME 12 hrs Normal [facility] Comment on above: Order Comment: Speci men Type: BLOOD SPECIMEN Ordering Facility: [facility] Address: [address] [place] [address] Performed By: #### L IPB #### [facility] CLIA [id number] [address] [place] [address] Triglyceride [Mass/Vol] 64 mg/dL Normal <150 [facility] Comment on above: Order Comment: Speci men Type: BLOOD SPECIMEN Ordering Facility: [facility] Address: [address] [place] [address] Result Comment: <150 mg/dL, Normal 150-199 mg/dL, Borderline high 200-499 mg/dL, High >499 mg/dL, Very high Performed By: #### L IPB #### [facility] CLIA [id number] [address] [place] [address] CNOVon 01-24-2022 CNOV Office Visit ([place] ) NATA BURNS ([id number]) 1980 F Date Time Provider Department 01/24/22 1:00 PM [facility] During your visit today, we recorded the following information about you: Temperature Pulse Respiration Blood pressure 98.1 degrees 75/minute 14/minute 120/68 Weight Height 68 kg 1.575 m Ward Lindsay APRN.REGISTERED DIETICIAN, DNP 01/24/2022 2:08 PM Signed Chief Complaint Patient presents with: Insurance Physical HPI Nata Burns is a 41 year old female who presents here today for a routine exam. Past Medical History: Overweight Specialty Providers: NETWORK ARCHITECT: Dr. Vaughn [facility]. No Pcp This is a new patient to me. No recent ER visits or hospitalizations. Last seen at the [facility] [place] [address] Shaw. Needs insurance form completed for health screening. Denies any acute concerns. No headaches, lightheadedness or dizziness. No chest pain, difficulty breathing or shortness of breath. No chronic pain or chronic muscle or joint pain. No history of chronic constipation or diarrhea. Past medical history, appointments, medications, allergies reviewed 01/24/2022 Previous Medical History PAST MEDICAL HISTORY Diagnosis Date - NEGATIVE MEDICAL HISTORY Previous Surgical History PAST SURGICAL HISTORY Procedure Laterality Date - PAST SURGICAL HISTORY OF [place] teeth extracted - PULMONARY FUNCTION TEST Family History FAMILY HISTORY Problem Relation Age of Onset - Diabetes Mother - Hypertension Mother - Renal Cell Cancer Father - No Known Problems Brother - Cancer Maternal Grandmother - No Known Problems Maternal Grandfather - Cancer Paternal Grandmother - No Known Problems Paternal Grandfather - No Known Problems Daughter - No Known Problems Son - No Known Problems Son Patient Allergies ALLERGIES Allergen Reactions - Cats - Erythromycin GI Upset - Fish - Seasonal [Other] Current Medications No current outpatient medications on file prior to visit. No current facility-administered medications on file prior to visit. Social History Social History Tobacco Use - Smoking status: Never Smoker - Smokeless tobacco: Never Used Vaping Use - Vaping Use: Never used Substance Use Topics - Alcohol use: Yes Alcohol/week: 1.0 standard drink Types: 1 Glasses of Wine (5oz) per week Comment: OCCASIONALLY - Drug use: No Review of Symptoms GENERAL: No unintentional weight loss, malaise or fevers. HEENT: Negative for frequent or significant headaches No significant change in vision. NECK: Negative for lumps, pain and significant neck swelling RESPIRATORY: Negative for cough or hemoptysis. No hortness of breath CARDIOVASCULAR: Negative for chest pain GI: No nausea, vomiting, or diarrhea. No blood in stool : No dysuria, frequency, urgency. No hematuria. MUSCULOSKELETAL: Negative for generalized joint pain, swelling, back pain SKIN: Negative for lesions, rash, and itching HEMATOLOGY/LYMPHOLOGY: Negative for prolonged bleeding, bruising easily or swollen nodes EXAM: BP 120/68 Pulse 75 Temp 36.7 ?C (98.1 ?F) Resp 14 Ht 157.5 cm (5' 2) Wt 68 kg (150 lb) LMP 06/18/2016 (Exact Date) SpO2 99% BMI 27.44 kg/m? General Appearance: Well appearing, alert, in no acute distress, well-hydrated, well nourished. Skin: Skin color, texture, turgor normal, no suspicious rashes or lesions. Head: Normocephalic, no masses, lesions Eyes: Anicteric sclera. Ears: External ears normal, canals clear, TM's clear with adequate light reflex. Nose/Sinuses: Nares normal, septum midline, mucosa normal, no drainage or sinus tenderness. Oropharynx: Lips, mucosa, and tongue normal, teeth and gums normal, oropharynx nonreddened. Neck: Supple, no adenopathy; thyroid symmetric, normal size, no bruits. Lymph Nodes: No cervical lymphadenopathy, No supraclavicular lymphadenopathy Lungs: Lungs clear to auscultation. No wheezing, rhonchi, rales. Heart: RRR without murmur, gallop, or rubs. No ectopy. Normal S1 and S2. Extremities: No deformities, edema, skin discoloration. Good capillary refill. MSK: FROM of upper and lower extremities. No joint swelling or redness. Peripheral Pulses: Normal - radial and carotid 2+ Psych: Attitude - Cooperative, easily engaged in conversation Appearance - Normal hygiene and grooming appropriate Affect - Euthymic (normal mood), Mental status: Alert, attentive. Speech is clear and fluent with good repetition, comprehension Coordination: No abnormal or extraneous movements. Gait/Stance: Posture is normal. Gait is steady with normal steps Health Maintenance List COVID-19 VACCINE(1) Never done DTAP,TDAP,TD(6 - Tdap) due on 1989 DEPRESSION SCREENING Never done HEPATITIS C SCREENING Never done HIV SCREENING Never done PAP TESTING due (more content not included)... Normal [facility] CNOVon 07-01-2021 CNOV Office Visit (UCWSTR ) DENNYNATA ([id number]) 1980 F Date Time Provider Department 07/01/21 9:30 AM SCOTT LE During your visit today, we recorded the following information about you: Temperature Pulse Respiration Blood pressure 98 degrees 84/minute 16/minute 122/82 Weight 69.7 kg Scott Le APRN.CNP 07/01/2021 9:48 AM Signed Causes ? Swollen nodes with a viral infection are usually ? to 1 inch (12 -25 mm) across. ? Swollen nodes with a bacterial infection are usually over 1 inch (25 mm) across (size of a quarter). ? The cervical (neck) nodes are most commonly involved because of the many respiratory infections that occur during childhood. ? Elsewhere, localized nodes are usually reacting to local skin irritation or infection. Return to School ? Swollen lymph nodes alone are not contagious. Care Advice 1. Reassurance for Normal Nodes: If you have discovered a pea-sized or mendez-sized node (smaller than ? inch or 12 mm), this is a normal lymph node. Don't look for lymph nodes, because you can always find some (especially in the neck and groin). 2. Reassurance for Swollen Nodes from a Viral Infection: Viral throat infections and colds can cause lymph nodes in the neck to double in size. Slight enlargement and mild tenderness means the lymph node is fighting the infection and doing a good job. 3. Fever or Pain Medicine: Give acetaminophen (e.g., Tylenol) or ibuprofen as needed for fever above 102? F (39? C) or pain. Otherwise no treatment is needed. 4. Avoid Squeezing: Don't squeeze lymph nodes because it may keep them from shrinking back to normal size. Tell your child not to fidget with them. 5. Contagiousness: Swollen lymph nodes alone are not contagious. If the swollen nodes are associated with a cold, sore throat or other infection, your child can return to school after the fever is gone and your child feels well enough to participate in normal activities. 6. Expected Course: After the infection is gone, the nodes slowly return to normal size over 2 to 4 weeks. However, they won't ever completely disappear. When To Call Call Your Doctor Now (night or day) If ? Your child looks or acts very sick ? Node in the neck causes difficulty with breathing, swallowing or drinking ? Fever over 104? F (40? C) and not improved 2 hours after fever medicine ? Overlying skin is red ? Rapid increase in size of node over several hours Scott Le APRN.CNP 07/01/2021 10:43 AM Signed This note was created using Breadriter. Subjective Nata Burns is a 41 year old female. HPI Patient is a healthy nontoxic-appearing 41-year-old female with past medical history of cervical atypia, presents the office today complaining of swollen chin. Patient states for the past 2 days she has had some swelling underneath left front of her chin. Patient states she has been having acne flares recently and is concerned may be a swollen lymph node. Patient denies any injuries trauma or falls. Patient denies any active drainage or bleeding. Patient denies any sensation of airway closing, shortness of breath difficulty breathing. Patient denies any difficulty swallowing or eating. Patient denies any recent dental work or surgeries. Patient denies any ear pain, sore throat, chest pain, abdominal pain, nausea,, diarrhea or constipation. Patient denies any taste or smell sensation change, increasing fatigue and malaise. Patient denies any fever, shaking, or chills. Review of Systems Constitutional: Negative. HENT: Positive for facial swelling. Negative for congestion, dental problem, drooling, ear discharge, ear pain, mouth sores, postnasal drip, sinus pressure, sinus pain, sore throat, tinnitus, trouble swallowing and voice change. Eyes: Negative. Respiratory: Negative. Cardiovascular: Negative. Gastrointestinal: Negative. Musculoskeletal: Negative. Skin: Negative. Neurological: Negative. Objective BP 122/82 Pulse 84 Temp 36.7 ?C (98 ?F) (Tympanic) Resp 16 Wt 69.7 kg (153 lb 9.6 oz) LMP 06/18/2016 (Exact Date) SpO2 98% BMI 27.73 kg/m? Physical Exam Vitals and nursing note reviewed. Constitutional: General: She is not in acute distress. Appearance: Normal appearance. She is not ill-appearing, toxic-appearing or diaphoretic. HENT: Head: Normocephalic. Right Ear: Tympanic membrane, ear canal and external ear normal. Left Ear: Tympanic membrane, ear canal and external ear normal. Nose: Nose normal. No congestion or rhinorrhea. Mouth/Throat: Mouth: Mucous membranes are moist. Pharynx: No oropharyngeal exudate or posterior oropharyngeal erythema. Eyes: Extraocular Movements: Extraocular movements intact. Pupils: Pupils are equal, round, and reactive to light. Cardiovascular: Rate and Rhythm: Normal rate and regular rhythm. Pulses: Normal pul (more content not included)... Normal [facility] Office Visit: est annualon 1 09-04-2016 Documentation of current medications (procedure) Done Invalid Interpretation Code [facility] Documentation of current medications (procedure) T Invalid Interpretation Code [facility] Fall risk assessment No Invalid Interpretation Code [facility] Tobacco smoking status NHIS Never Invalid Interpretation Code [facility] Tobacco use CPHS Never smoker Invalid Interpretation Code [facility] Office Visit: est annualon 1 General categories [Interpretation] of Cervical or vaginal smear or scraping by Cyto stain Normal Invalid Interpretation Code [facility] Vital Signs Date Time Vital Sign Value Performing Clinician Faci lity 03-05-2025 11:12-0400 Body height 167.64 cm No Primary Care Physician [facility] 03-05-2025 11:12-0400 Body mass index (BMI) [Ratio] 23.9 kg/m2 No Primary Care Physician [facility] 03-05-2025 11:12-0400 Body weight 67.18 kg No Primary Care Physician [facility] 03-05-2025 11:12-0400 Diastolic blood pressure 78 mm[Hg] No Primary Care Physician [facility] 03-05-2025 11:12-0400 Systolic blood pressure 136 mm[Hg] No Primary Care Physician [facility] 02-27-2023 11:10-0400 Body height 167.64 cm No Primary Care Physician [facility] 02-27-2023 11:09-0400 Body mass index (BMI) [Ratio] 23.6 kg/m2 No Primary Care Physician [facility] 02-27-2023 11:090400 Body weight 66.33 kg No Primary Care Physician [facility] 02-27-2023 11:09-0400 Diastolic blood pressure 79 mm[Hg] No Primary Care Physician [facility] 02-27-2023 11:09-0400 Systolic blood pressure 125 mm[Hg] No Primary Care Physician [facility] 02-03-2022 10:31-0400 Body height 167.[address] Vanessa Owens Work Phone: [facility] Work Phone: 02-03-2022 10:31-0400 Body mass index (BMI) [Ratio] 23.8 kg/m2 Dr. Vanessa Owens Work Phone: [facility] Work Phone: 02-03-2022 10:31-0400 Body weight 67.[address] Vanessa Owens Work Phone: [facility] Work Phone: 02-03-2022 10:31-0400 Diastolic blood pressure 78 mm[Hg] Dr. Vanessa Owens Work Phone: [facility] Work Phone: 02-03-2022 10:31-0400 Systolic blood pressure 122 mm[Hg] Dr. Vanessa Owens Work Phone: [facility] Work Phone: 01-24-2022 13:00-0400 Body height 157.5 cm Ward Lindsay APRN.CNP, DNP Work Phone: [facility] 01-24-2022 13:00-0400 Body temperature 98.1 [degF] Ward Lindsay APRN.CNP, DNP Work Phone: [facility] 01-24-2022 13:00-0400 Body weight 68.04 kg Ward Lindsay APRN.CNP, DNP Work Phone: [facility] 01-24-2022 13:00-0400 Diastolic blood pressure 68 mm[Hg] Ward Lindsay APRN.CNP, DNP Work Phone: [facility] 01-24-2022 13:00-0400 Heart rate 75 /min Ward Lindsay APRN.CNP, DNP Work Phone: [facility] 01-24-2022 13:00-0400 Respiratory rate 14 /min Ward Lindsay APRN.REGISTERED DIETICIAN, DNP Work Phone: [facility] 01-24-2022 13:00-0400 SaO2% (BldA) [Mass fraction] 99 % Ward Lindsay APRN.REGISTERED DIETICIAN, DNP Work Phone: [facility] 01-24-2022 13:00-0400 Systolic blood pressure 120 mm[Hg] Ward Lindsay APRN.REGISTERED DIETICIAN, DNP Work Phone: [facility] 07-05-2017 09:59-0400 BMI (Body Mass Index) 23.85 kg/m2 Vanessa Owens MD [facility] 07-05-2017 09:59-0400 Body Temperature 98 [degF] Vanessa Owens MD [facility] 07-05-2017 09:59-0400 Body Temperature 98.01 [degF] Vanessa Owens MD [facility] 07-05-2017 09:59-0400 BP Diastolic 76 mm[Hg] Vanessa Owens MD [facility] 07-05-2017 09:59-0400 BP Systolic 112 mm[Hg] Vanessa Owens MD [facility] 07-05-2017 09:59-0400 Height 157.48 cm Vanessa Owens MD [facility] 07-05-2017 09:59-0400 Pulse (Heart Rate) 84 /min Vanessa Owens MD [facility] 07-05-2017 09:59-0400 Respiratory Rate 16 /min Vanessa Owens MD [facility] 07-05-2017 09:59-0400 Weight 59.15 kg Vanessa Owens MD [facility] Encounters Encounter Date Encounter Type Care Provider Facility Start: 03-05-2025 End: 03-05-[address] Vanessa Owens MD [facility] Start: 03-05-2025 End: 03-05-2025 ambulatory No Primary Care Physician Facility[facility] Start: 03-05-2025 End: 03-05-[address] Vanessa Owens MD -[facility] Work Phone: Start: 03-27-2024 Encounter for gynecological examination (general) (routine) with abnormal findings Vanessa Owens [facility] Start: 03-04-2024 End: 03-04-2024 ambulatory No Primary Care Physician Facility[facility] Start: 03-04-2024 End: 03-04-2024 ambulatory No Primary Care Physician Facility:[facility] Start: 02-27-2023 End: 02-27-2023 ambulatory No Primary Care Physician [facility] Work Phone: Start: 02-27-2023 End: 02-27-2023 Patient encounter procedure No Primary Care Physician [facility] Work Phone: Start: 02-03-2022 End: 02-03-[address] Vanessa Owens Work Phone: [facility] Start: 01-28-2022 Telephone encounter Ward cuenca APRN.CNP, HARPER Work Phone: [facility] Comment on above: Results; Orders Start: 01-24-2022 End: 01-24-2022 Patient encounter procedure Ward Lindsay APRN.CNP, HARPER Work Phone: [facility] Comment on above: [facility] (Primary Dx); Overweight (BMI 25.0-29.9) Start: 01-24-2022 End: 01-24-2022 Patient encounter status Ward Lindsay APRN.CNP, HARPER Work Phone: [facility] Start: 07-01-2021 Manual pelvic examination Ward Lindsay APRN.CNP, HARPER Work Phone: [facility] Work Phone: Procedures Date Procedure Procedure Detail Performing Clinician Start: 02-27-2023 Screening mammography N o Primary Care Physician Start: 02-03-2022 Screening mammography Ivana Owens Work Phone: Start: 01-24-2022 Adult depression screening assessment Ward Lindsay APRN.JOE, HARPER Work Phone: Start: 10-26-2020 Mammography Ward cuenca APRN.JOE, HARPER Work Phone: Plan of Treatment Date Care Activity Detail Author Start: 03-05-2025 Screening mammography SCRN LAURA M (CAD)W/TRINY [facility] Start: 01-24-2023 Adult depression screening assessment DEPRESSION SCREENING [facility] Start: 01-24-2023 COVID-19 VACCINE (#1) COVID-19 VACCI NE (#1) [facility] Comment on above: Postponed from 03/24 (Declined at this time) Start: 05-05-2022 Influenza vaccination INFLUENZ A (Season Ended) [facility] Start: 03-03-2022 Mammography MAMMOGRAM [facility] Comment on above: Postponed from 10/26 (Postponed To Appropriate Date) Start: 01-28-2022 End: 03-30-2022 Fasting glucose [Mass/volume] in Serum or Plasma GLUCOSE FASTING BLD Lab Routine Elevated fasting glucose Expected: 01/28/2022, Expires: 03/30/2022 [facility] Work Phone: Comment on above: Expected: 01/28/2022 , Expires: 03/30/2022 Start: 01-28-2022 End: 03-30-2022 Hemoglobin A1c/Hemoglobin.total in Blood HGB A1C Lab Routine Elevated fasting glucose Expected: 01/28/2022, Expires: 03/30/2022 [facility] Work Phone: Comment on above: Expected: 01/28/2022 , Expires: 03/30/2022 Start: 01-24-2022 End: 03-26-2022 Fasting glucose [Mass/volume] in Serum or Plasma GLUCOSE FASTING BLD Lab Routine [facility] adult [facility] check Expected: 01/24/2022, Expires: 03/26/2022 [facility] Work Phone: Comment on above: Expected: 01/24/2022 , Expires: 03/26/2022 Start: 01-24-2022 End: 07-23-2022 LIPID PANEL BASIC LIPID PANEL BASIC Lab Routine [facility] adult health check Expected: 01/24/2022, Expires: 03/26/2022 [facility] Work Phone: Comment on above: Expected: 01/24/2022 , Expires: 03/26/2022 Start: 06-28-2021 HPV TESTING HPV TESTING [facility] Start: 06-28-2021 PAP TESTING PAP TESTING [facility] Start: 07-05-2017 End: 07-05-2017 Appointment Appointment [facility] Start: 1989 Urine microalbumin profile DTAP,TDAP,TD (6 - Tdap) [facility]'s Care Immunizations Immunization Date Immunization Notes Care Provider Pamela minor 07-22-2020 influenza, injectabl e, quadrivalent, contains preservative Ward Lindsay ANALYTICAL MANAGER.HARPER DIAZ Work Phone: [facility] Work Phone: 06-29-2019 influenza, injectabl e, quadrivalent, contains preservative Ward Lindsay APRN.HARPER DIAZ Work Phone: [facility] 06-16-2018 influenza, injectabl e, quadrivalent, contains preservative Ward Lindsay ANALYTICAL MANAGER.HARPER DIAZ Work Phone: [facility] 07-08-2017 influenza, injectabl e, quadrivalent, contains preservative Ward Lindsay ANALYTICAL MANAGER.HARPER DIAZ Work Phone: [facility] 07-01-2016 influenza, injectabl e, quadrivalent, contains preservative Ward Lindsay ANALYTICAL MANAGER.HARPER DIAZ Work Phone: [facility] Work Phone: 07-08-2015 influenza, injectabl e, quadrivalent, contains preservative Ward Lindsay ANALYTICAL MANAGER.HARPER DIAZ Work Phone: [facility] Work Phone: 07-18-2014 influenza, seasonal, injectable Ward Lindsay ANALYTICAL MANAGER.HARPER DIAZ Work Phone: [facility] Work Phone: 07-20-2013 influenza virus vaccine, unspecified formulation Ward Lindsay APRN.[facility] Work Phone: [facility] 07-30-2012 influenza virus vaccine, unspecified formulation Ward Lindsay ANALYTICAL MANAGER.[facility] Work Phone: [facility] 08-11-2011 influenza virus vaccine, unspecified formulation Ward Blajoellen ANALYTICAL MANAGER.[facility] Work Phone: [facility] Work Phone: 06-17-2010 influenza virus vaccine, unspecified formulation Ward Lindsay APRN.[facility] Work Phone: [facility] 08-24-2009 novel [id number], preservative-free, injectable Ward Lindsay APRN.[facility] Work Phone: [facility] Work Phone: 06-25-2009 influenza virus vaccine, unspecified formulation Ward Lindsay APRN.[facility] Work Phone: [facility] Work Phone: 07-22-2008 influenza virus vaccine, unspecified formulation Ward Angélica ANALYTICAL MANAGER.[facility] Work Phone: [facility] 1983 DTP-Haemophilus influenzae type b conjugate vaccine Ward Lindsay APRN.[facility] Work Phone: [facility] Work Phone: 1983 poliovirus vaccine, inactivated Ward Lindsay ANALYTICAL MANAGER.[facility] Work Phone: [facility] Work Phone: 04-22-1980 DTP-Haemophilus influenzae type b conjugate vaccine Ward Blajoellen [place] Work Phone: [facility] Work Phone: 04-22-1980 poliovirus vaccine, inactivated Ward Blaz ANALYTICAL MANAGER.[facility] Work Phone: [facility] Work Phone: 06-26-1979 measles, mumps and rubella virus vaccine Ward Blajoellen [place] Work Phone: [facility] Work Phone: 1978 DTP-Haemophilus influenzae type b conjugate vaccine Ward Lopezjoellen [place] Work Phone: [facility] Work Phone: 1980 poliovirus vaccine, inactivated Ward Blajoellen ANALYTICAL MANAGER.[facility] Work Phone: [facility] Work Phone: 1980 DTP-Haemophilus influenzae type b conjugate vaccine Ward Blajoellen ANALYTICAL MANAGER.[facility] Work Phone: [facility] Work Phone: 1980 DTP-Haemophilus influenzae type b conjugate vaccine Ward Lindsay ANALYTICAL MANAGER.[facility] Work Phone: [facility] Work Phone: 1980 poliovirus vaccine, inactivated Ward Lindsay ANALYTICAL MANAGER.[facility] Work Phone: [facility] Work Phone: Payers Date Payer Category Payer Unknown [id number] 2023 Self-pay [id number] 2023 Unknown [id number] 2019 Private Health Insurance AETNA A ETNA CHOICE POS II [id number] 2019-Present [phone] [address] [place] [address] POS [id number] Private Health Insurance [id number] Unknown [id number] Unknown [id number] Unknown [facility] PACK[employer] PLAN [id number] Unknown [id number] Unknown [id number] Unknown [id number] Unknown [id number] Unknown [id number] Social History Date Type Detail Facility Start: 03-05-2025 Tobacco smoking status NHIS Never smoked tobacco [facility] Work Phone: Start: 01-24-2022 Alcohol intake Current drinke r of alcohol (finding) [facility] Start: 01-24-2022 Alcohol intake [facility] Start: 01-09-2015 History SDOH Alcohol Comment OCCASIONALLY [facility] Start: 1980 Sex Assigned At Female [facility] [place] Work Phone: Start: 01-02-2022 End: 01-12-2022 Exposure to SARS-CoV-2 (event) Not sure [facility] Work Phone: Start: 02-03-2022 End: 02-27-2023 Tobacco smoking status NHIS Unknown if ever smoked [facility] Clinical Notes 11-17-2010 to 03-05-2025 Telephone Encounter - Linda Lyons RN - 01/28/2022 4:36 PM EDTTelephone Encounter - Ward Lindsay APRN.CNP, DNP - 01/28/2022 4:14 PM EDTPatient Instructions Note Date & Type Note Facility 03-05-[address] [facility] 02-27-2023 Note [facility] Pap Smear Specimen Adequacy February 27, 2023 2:28pm Comment . Satisfactory for evaluation. Endocervical and/or squamous metaplasticcells (endocervical component) are present. Comment on above: Satisfactory for hiren luation. Endocervical and/or squamous metaplasticcells (endocervical component) are present. 01-28-2022 Miscellaneous Notes Pt called and is notified of providers results and instructions. Pt voices understanding. Linda Lyons RN Team - Inform the patient that her cholesterol levels look good. Her fasting blood sugar though was elevated. She needs to perform a repeat fasting blood sugar and hemoglobin A1c. She can complete this next week. ASSESSMENT/PLAN: 1. Elevated fasting glucose - ICD9: 790.21, ICD10: R73.01 - HGB A1C - GLUCOSE FASTING BLD Ward Lindsay APRN.HARPER DIAZ [facility] documented in this encounter [facility] 01-24-2022 Note HNO ID: [id number] Author: Ward Lindsay APRN.HARPER DIAZ Service: ? Author Type: Nurse Practitioner Type: Progress Notes Filed: 01/24/2022 2:08 PM Note Text: Chief Complaint Patient presents with: Insurance Physical HPI Nata Burns is a 41 year old female who presents here today for a routine exam. Past Medical History: Overweight Specialty Providers: NETWORK ARCHITECT: Dr. Vaughn Presents to the [facility] as an unestablished patient. No Pcp This is a new patient to me. No recent ER visits or hospitalizations. Last seen at the [facility] [place] [address] Shaw. Needs insurance form completed for health screening. Denies any acute concerns. No headaches, lightheadedness or dizziness. No chest pain, difficulty breathing or shortness of breath. No chronic pain or chronic muscle or joint pain. No history of chronic constipation or diarrhea. Past medical history, appointments, medications, allergies reviewed 01/24/2022 Previous Medical History PAST MEDICAL HISTORY Diagnosis Date - NEGATIVE MEDICAL HISTORY Previous Surgical History PAST SURGICAL HISTORY Procedure Laterality Date - PAST SURGICAL HISTORY OF [place] teeth extracted - PULMONARY FUNCTION TEST Family History FAMILY HISTORY Problem Relation Age of Onset - Diabetes Mother - Hypertension Mother - Renal Cell Cancer Father - No Known Problems Brother - Cancer Maternal Grandmother - No Known Problems Maternal Grandfather - Cancer Paternal Grandmother - No Known Problems Paternal Grandfather - No Known Problems Daughter - No Known Problems Son - No Known Problems Son Patient Allergies ALLERGIES Allergen Reactions - Cats - Erythromycin GI Upset - Fish - Seasonal [Other] Current Medications No current outpatient medications on file prior to visit. No current facility-administered medications on file prior to visit. Social History Social History Tobacco Use - Smoking status: Never Smoker - Smokeless tobacco: Never Used Vaping Use - Vaping Use: Never used Substance Use Topics - Alcohol use: Yes Alcohol/week: 1.0 standard drink Types: 1 Glasses of Wine (5oz) per week Comment: OCCASIONALLY - Drug use: No Review of Symptoms GENERAL: No unintentional weight loss, malaise or fevers. HEENT: Negative for frequent or significant headaches No significant change in vision. NECK: Negative for lumps, pain and significant neck swelling RESPIRATORY: Negative for cough or hemoptysis. No hortness of breath CARDIOVASCULAR: Negative for chest pain GI: No nausea, vomiting, or diarrhea. No blood in stool : No dysuria, frequency, urgency. No hematuria. MUSCULOSKELETAL: Negative for generalized joint pain, swelling, back pain SKIN: Negative for lesions, rash, and itching HEMATOLOGY/LYMPHOLOGY: Negative for prolonged bleeding, bruising easily or swollen nodes EXAM: BP 120/68 Pulse 75 Temp 36.7 ?C (98.1 ?F) Resp 14 Ht 157.5 cm (5' 2) Wt 68 kg (150 lb) LMP 06/18/2016 (Exact Date) SpO2 99% BMI 27.44 kg/m? General Appearance: Well appearing, alert, in no acute distress, well-hydrated, well nourished. Skin: Skin color, texture, turgor normal, no suspicious rashes or lesions. Head: Normocephalic, no masses, lesions Eyes: Anicteric sclera. Ears: External ears normal, canals clear, TM's clear with adequate light reflex. Nose/Sinuses: Nares normal, septum midline, mucosa normal, no drainage or sinus tenderness. Oropharynx: Lips, mucosa, and tongue normal, teeth and gums normal, oropharynx nonreddened. Neck: Supple, no adenopathy; thyroid symmetric, normal size, no bruits. Lymph Nodes: No cervical lymphadenopathy, No supraclavicular lymphadenopathy Lungs: Lungs clear to auscultation. No wheezing, rhonchi, rales. Heart: RRR without murmur, gallop, or rubs. No ectopy. Normal S1 and S2. Extremities: No deformities, edema, skin discoloration. Good capillary refill. MSK: FROM of upper and lower extremities. No joint swelling or redness. Peripheral Pulses: Normal - radial and carotid 2+ Psych: Attitude - Cooperative, easily engaged in conversation Appearance - Normal hygiene and grooming appropriate Affect - Euthymic (normal mood), Mental status: Alert, attentive. Speech is clear and fluent with good repetition, comprehension Coordination: No abnormal or extraneous movements. Gait/Stance: Posture is normal. Gait is steady with normal steps Health Maintenance List COVID-19 VACCINE(1) Never done DTAP,TDAP,TD(6 - Tdap) due on 1989 DEPRESSION SCREENING Never done HEPATITIS C SCREENING Never done HIV SCREENING Never done PAP TESTING due on 06/28/2021 HPV TESTING due on 06/28/2021 MAMMOGRAM due on 10/26/2021 INFLUENZA(Season Ended) due on 05/05/2022 MENINGOCOCCAL CONJUGATE Aged Out Data reviewed Last 5 Encounter BP Readings: Date: BP: 07/01/2021 122/82 08/08/2019 108/82 01/30/2019 124/72 06/28/2016 98/6 (more content not included)... [facility] 01-24-2022 Instructions Ward Lindsay APRN.CNP, DNP - 01/24/2022 1:44 PM EDT Follow up with Ward Lindsay APRN.CNP, DNP in 1 year Will need to establish care with a new provider. Perform fasting lab work. Clinic to call with results or will send through [employer]. You can schedule an appointment for lab work at our front desk person. Please fast 12 hours prior to blood work. You may have water, medications and black coffee during that fasting time. Lab hours are from 7:30 - 5:30 pm - and from 8:00 am -12:00pm Monday. Return to the clinic or seek care at [facility] for any worsening signs or symptoms Healthy Habits: Recommend regular physical activity, nutrition and healthy eating habits. Consume a variety of foods every day focusing on fruits, vegetables and lean meats). Eat foods low in fat, saturated fat and cholesterol. Eat a limited amount of salt and sodium. Drink adequate amounts of water and limit sugary drinks. Exercise portion control in meal selection. Establish a mindset of a wellness approach to health. Thank you for allowing me to provide your care today. I look forward to seeing you again and maintaining your health. Ward Lindsay APRN.HARPER DIAZ documented in this encounter [facility] 01-24-2022 History of Presen t illness Narrative Chief Complaint Patient presents with: Insurance Physical HPI Nata Burns is a 41 year old female who presents here today for a routine exam. Past Medical History: Overweight Specialty Providers: NETWORK ARCHITECT: Dr. Vaughn Presents to the [facility] as an unestablished patient. No Pcp This is a new patient to me. No recent ER visits or hospitalizations. Last seen at the [facility] [place] [address] Shaw. Needs insurance form completed for health screening. Denies any acute concerns. No headaches, lightheadedness or dizziness. No chest pain, difficulty breathing or shortness of breath. No chronic pain or chronic muscle or joint pain. No history of chronic constipation or diarrhea. Past medical history, appointments, medications, allergies reviewed 01/24/2022 Previous Medical History PAST MEDICAL HISTORY Diagnosis Date NEGATIVE MEDICAL HISTORY Previous Surgical History PAST SURGICAL HISTORY Procedure Laterality Date PAST SURGICAL HISTORY OF [place] teeth extracted PULMONARY FUNCTION TEST Family History FAMILY HISTORY Problem Relation Age of Onset Diabetes Mother Hypertension Mother Renal Cell Cancer Father No Known Problems Brother Cancer Maternal Grandmother No Known Problems Maternal Grandfather Cancer Paternal Grandmother No Known Problems Paternal Grandfather No Known Problems Daughter No Known Problems Son No Known Problems Son Patient Allergies ALLERGIES Allergen Reactions Cats Erythromycin GI Upset Fish Seasonal [Other] Current Medications No current outpatient medications on file prior to visit. No current facility-administered medications on file prior to visit. Social History Social History Tobacco Use Smoking status: Never Smoker Smokeless tobacco: Never Used Vaping Use Vaping Use: Never used Substance Use Topics Alcohol use: Yes Alcohol/week: 1.0 standard drink Types: 1 Glasses of Wine (5oz) per week Comment: OCCASIONALLY Drug use: No Review of Symptoms GENERAL: No unintentional weight loss, malaise or fevers. HEENT: Negative for frequent or significant headaches No significant change in vision. NECK: Negative for lumps, pain and significant neck swelling RESPIRATORY: Negative for cough or hemoptysis. No hortness of breath CARDIOVASCULAR: Negative for chest pain GI: No nausea, vomiting, or diarrhea. No blood in stool : No dysuria, frequency, urgency. No hematuria. MUSCULOSKELETAL: Negative for generalized joint pain, swelling, back pain SKIN: Negative for lesions, rash, and itching HEMATOLOGY/LYMPHOLOGY: Negative for prolonged bleeding, bruising easily or swollen nodes EXAM: BP 120/68 Pulse 75 Temp 36.7 C (98.1 F) Resp 14 Ht 157.5 cm (5' 2) Wt 68 kg (150 lb) LMP 06/18/2016 (Exact Date) SpO2 99% BMI 27.44 kg/m General Appearance: Well appearing, alert, in no acute distress, well-hydrated, well nourished. Skin: Skin color, texture, turgor normal, no suspicious rashes or lesions. Head: Normocephalic, no masses, lesions Eyes: Anicteric sclera. Ears: External ears normal, canals clear, TM's clear with adequate light reflex. Nose/Sinuses: Nares normal, septum midline, mucosa normal, no drainage or sinus tenderness. Oropharynx: Lips, mucosa, and tongue normal, teeth and gums normal, oropharynx nonreddened. Neck: Supple, no adenopathy; thyroid symmetric, normal size, no bruits. Lymph Nodes: No cervical lymphadenopathy, No supraclavicular lymphadenopathy Lungs: Lungs clear to auscultation. No wheezing, rhonchi, rales. Heart: RRR without murmur, gallop, or rubs. No ectopy. Normal S1 and S2. Extremities: No deformities, edema, skin discoloration. Good capillary refill. MSK: FROM of upper and lower extremities. No joint swelling or redness. Peripheral Pulses: Normal - radial and carotid 2+ Psych: Attitude - Cooperative, easily engaged in conversation Appearance - Normal hygiene and grooming appropriate Affect - Euthymic (normal mood), Mental status: Alert, attentive. Speech is clear and fluent with good repetition, comprehension Coordination: No abnormal or extraneous movements. Gait/Stance: Posture is normal. Gait is steady with normal steps Health Maintenance List COVID-19 VACCINE(1) Never done DTAP,TDAP,TD(6 - Tdap) due on 1989 DEPRESSION SCREENING Never done HEPATITIS C SCREENING Never done HIV SCREENING Never done PAP TESTING due on 06/28/2021 HPV TESTING due on 06/28/2021 MAMMOGRAM due on 10/26/2021 INFLUENZA(Season Ended) due on 05/05/2022 MENINGOCOCCAL CONJUGATE Aged Out Data reviewed Last 5 Encounter BP Readings: Date: BP: 07/01/2021 122/82 08/08/2019 108/82 01/30/2019 124/72 06/28/2016 98/62 01/09/2015 112/60 BMI Readings from Last 5 Encounters: 01/24/22 : 27.44 kg/m 07/01/21 : 27.73 kg/m 08/08/19 : 25.64 kg/m 01/30/19 : 24.74 kg/m 06/28/16 : 22.39 kg/m Last 5 Encounter Wt Readings: Date: Wt: 07/01/2021 69.7 kg (153 lb 9.6 oz) 08/08/2019 64.4 kg (142 lb) 01/30/2019 62.1 kg (137 lb) 06/28/2016 56.2 kg (124 lb) 01/09/2015 62.1 kg (137 lb) Medication and allergy list reviewed, reconciled and updated 01/24/2022 ASSESSMENT/PLAN: 1. Well adult health check - ICD9: V70.0, ICD10: Z00.00 (primary diagnosis) Performed a complete age, appropriate history and physical, along with risk factor reduction and counseling on preventive services. - Form pending completion once labs completed _ Needs to establish care. - LIPID PANEL BASIC - GLUCOSE FASTING BLD 2. Overweight (BMI 25.0-29.9) - ICD9: 278.02, ICD10: E66.3 Chronic and stable weight Recommend regular physical activity, nutrition and healthy eating habits. Consume a variety of foods every day focusing on fruits, vegetables and lean meats). Eat foods low in fat, saturated fat and cholesterol. Eat a limited amount of salt and sodium. Drink adequate amounts of water and limit sugary drinks. Exercise portion control in meal selection. Establish a mindset of a wellness approach to health. Ward Lindsay APRN.HARPER DIAZ This note was completed with [employer] dictation software. Note was reviewed for accuracy. There may be minor misspellings or grammar miscues with [employer] Dictation. I spent a total of 32 minutes on the date of the service which included preparing to see the patient, [id number] patient care, completing clinical documentation, performing a medically appropriate examination, counseling and educating the patient/family/caregiver and ordering medications, tests, or procedures. [place] [id number] documented in this encounter [facility] 09-17-2021 Note HNO ID: [id number] Author: Sophia Ward MA Service: ? Author Type: Aquatics Manager Type: Progress Notes Filed: 09/17/2021 11:14 AM Note Text: POPULATION HEALTH NAVIGATION OUTREACH Action/FYI PCP OFF BOARDING OUTREACH Attempt # 1 Spoke with patient, stated she doesn't have a need to see anyone at this time to select a PCP. PCP updated today to NO PCP for now. Pt aware. Encounter closed. Contact made with patient or family member? YES Pt identified by name and : YES Outreach Outcome/Action Spoke to patient or caregiver: Patient declined PCP field updated Reason for Outreach Attribution: Provider Off-boarding Payer: Payor: AETNA / Plan: AETNA CHOICE POS II / Product Type: POS / Care Gap Reviewed:: Annual Wellness visit Breast Cancer screening Flu vaccine Reminder: Reminder note to check Health Maintenance for items below Health Maintenance items due: COVID-19 VACCINE(1) Never done DTAP,TDAP,TD(6 - Tdap) due on 1989 DEPRESSION SCREENING Never done HEPATITIS C SCREENING Never done HIV SCREENING Never done INFLUENZA(1) due on 05/05/2021 PAP TESTING due on 06/28/2021 HPV TESTING due on 06/28/2021 MAMMOGRAM due on 10/26/2021 Sophia Ward MA September 17, 2021 11:07 AM [facility] 09-16-2021 Note Patient Outreach (NE TNAV) DENNYNATA ([id number]) 1980 F Date Time Provider Department 09/16/21 SOPHIA WARD During your visit today, we recorded the following information about you: Sophia Ward MA 09/17/2021 11:14 AM Signed POPULATION HEALTH NAVIGATION OUTREACH Action/I PCP OFF BOARDING OUTREACH Attempt # 1 Spoke with patient, stated she doesn't have a need to see anyone at this time to select a PCP. PCP updated today to NO PCP for now. Pt aware. Encounter closed. Contact made with patient or family member? YES Pt identified by name and : YES Outreach Outcome/Action Spoke to patient or caregiver: Patient declined PCP field updated Reason for Outreach Attribution: Provider Off-boarding Payer: Payor: AETNA / Plan: AETNA CHOICE POS II / Product Type: POS / Care Gap Reviewed:: Annual Wellness visit Breast Cancer screening Flu vaccine Reminder: Reminder note to check Health Maintenance for items below Health Maintenance items due: COVID-19 VACCINE(1) Never done DTAP,TDAP,TD(6 - Tdap) due on 1989 DEPRESSION SCREENING Never done HEPATITIS C SCREENING Never done HIV SCREENING Never done INFLUENZA(1) due on 05/05/2021 PAP TESTING due on 06/28/2021 HPV TESTING due on 06/28/2021 MAMMOGRAM due on 10/26/2021 Sophia Ward MA September 17, 2021 11:07 AM Allergies As of Date: 09/16/2021 Noted Allergy Reaction CATS 05/05/2006 ERYTHROMYCIN 07/25/2005 8 - GI Upset FISH 05/05/2006 SEASONAL [Other] 05/05/2006 Date Reviewed: 07/01/2021 Reviewed by: Terri Gonzalez LPN - Fully Assessed Reason for Visit: Population Health Navigation Outreach [3910] Cmt: Offboarding - Dr Duarte III Problem List As Of Date 09/16/2021 Noted Resolved Supervision of other normal [Z34.80] 11/17/2010 07/29/2013 Cervical atypia [N87.9] 07/01/2021 Normal pelvic exam [Z01.419] 07/05/2017 Encounter Status:Closed by SOPHIA WARD on 09/17/21 [facility] 07-01-2021 Note HNO ID: [id number] Author: Scott Le APRN.JOE Service: ? Author Type: Nurse Practitioner Type: Progress Notes Filed: 07/01/2021 10:43 AM Note Text: This note was created using [employer]. Subjective Nata Burns is a 41 year old female. HPI Patient is a healthy nontoxic-appearing 41-year-old female with past medical history of cervical atypia, presents the office today complaining of swollen chin. Patient states for the past 2 days she has had some swelling underneath left front of her chin. Patient states she has been having acne flares recently and is concerned may be a swollen lymph node. Patient denies any injuries trauma or falls. Patient denies any active drainage or bleeding. Patient denies any sensation of airway closing, shortness of breath difficulty breathing. Patient denies any difficulty swallowing or eating. Patient denies any recent dental work or surgeries. Patient denies any ear pain, sore throat, chest pain, abdominal pain, nausea,, diarrhea or constipation. Patient denies any taste or smell sensation change, increasing fatigue and malaise. Patient denies any fever, shaking, or chills. Review of Systems Constitutional: Negative. HENT: Positive for facial swelling. Negative for congestion, dental problem, drooling, ear discharge, ear pain, mouth sores, postnasal drip, sinus pressure, sinus pain, sore throat, tinnitus, trouble swallowing and voice change. Eyes: Negative. Respiratory: Negative. Cardiovascular: Negative. Gastrointestinal: Negative. Musculoskeletal: Negative. Skin: Negative. Neurological: Negative. Objective BP 122/82 Pulse 84 Temp 36.7 ?C (98 ?F) (Tympanic) Resp 16 Wt 69.7 kg (153 lb 9.6 oz) LMP 06/18/2016 (Exact Date) SpO2 98% BMI 27.73 kg/m? Physical Exam Vitals and nursing note reviewed. Constitutional: General: She is not in acute distress. Appearance: Normal appearance. She is not ill-appearing, toxic-appearing or diaphoretic. HENT: Head: Normocephalic. Right Ear: Tympanic membrane, ear canal and external ear normal. Left Ear: Tympanic membrane, ear canal and external ear normal. Nose: Nose normal. No congestion or rhinorrhea. Mouth/Throat: Mouth: Mucous membranes are moist. Pharynx: No oropharyngeal exudate or posterior oropharyngeal erythema. Eyes: Extraocular Movements: Extraocular movements intact. Pupils: Pupils are equal, round, and reactive to light. Cardiovascular: Rate and Rhythm: Normal rate and regular rhythm. Pulses: Normal pulses. Heart sounds: Normal heart sounds. No murmur heard. No friction rub. No gallop. Pulmonary: Effort: Pulmonary effort is normal. No respiratory distress. Breath sounds: Normal breath sounds. No stridor. No wheezing, rhonchi or rales. Chest: Chest wall: No tenderness. Musculoskeletal: General: Normal range of motion. Cervical back: Normal range of motion and neck supple. Skin: General: Skin is warm and dry. Capillary Refill: Capillary refill takes less than 2 seconds. Neurological: General: No focal deficit present. Mental Status: She is alert and oriented to person, place, and time. Assessment and Plan Given patient's complaint presentation thorough exam was performed. Patient does have moderate amount of firm edema underneath the chin over the submental lymph nodes. Patient denies any shortness of breath, difficulty breathing, has no stridor or wheezing auscultated over the neck, no adventitious lung sounds auscultated, speaking complete sentences no respiratory distress, remains hemodynamically stable during office visit, is afebrile, has no gumline erosion, gumline bleeding, no recent dental procedures performed, teeth remain intact with no trauma, no angioedema present, back of the throat is no erythema or exudates identified, uvula is midline, tonsils are nonvisualized, managing secretions appropriately, no excessive oral dryness, I have low suspicion for airway compromise, Ludwigs angina, anaphylaxis. Given findings I do suspect patient is experiencing submental lymph node edema versus salivary gland obstruction. I encourage patient continue using anti-inflammatories. Through shared decision making I encourage patient to monitor symptoms and should it become worse go to emergency room immediately for further evaluation. I encourage patient to follow-up with ENT within the next several days. Patient was agreeable with this plan and discharged home in stable condition. Scott Le APRN.JOE [facility] 11-17-2010 History of Past i llness Narrative Problem Noted Date Resolved Date Supervision of other normal 11/17/2010 07/29/2013 documented as of this encounter (statuses as of 01/24/2022) [facility] History of Past illness Narrative* Problem Noted Date Resolved Date Supervision of other normal 11/17/2010 07/29/2013 documented as of this encounter (statuses as of 01/28/2022) [facility] Well adult health check- Primary Routine general medical examination at a health care facility Overweight (BMI 25.0-29.9) Overweight [facility] Elevated fasting glucose- Primary Impaired fasting glucose documented in [facility] Diagnosis Onset Date Resolution Status [id number] acute History of fourth degree perineal laceration acute Thyromegaly acute [facility] Work Phone: Evaluation note* Diagnosis Onset Date Resolution Status History of fourth degree perineal laceration acute Encounter for routine gynecological examination noneactive [facility] Work Phone: Evaluation note* Diagnosis Onset Date Resolution Status Admit Date Encounter for routine gynecological examination noneactive March 052024 11:05am [facility] Work Phone: Progress note Author Vaenssa Owens [facility] Note Date/Time March 05, 2025 11:38 am [facility] [address] [place] [address], [address] [place] [address] OFFICE VISIT Date of Service: 03/05/25 MR#: [id number] Acct: [id number] Name: NATA BURNS Rep #: [id number] : 1980 Provider: Dr. 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: No Is patient in pain?: No Allergies erythromycin base Allergy (Mild, Verified 03/05/25 11:13) Other Medications ?Medication ?Instructions ?Recorded ?Confirmed ?Type desogestrel 0.15 mg-ethinyl 1 tab PO QDAY #84 tabs 03/05/25 Rx estradiol 0.03 mg tablet (Apri) Is last menstrual period known: No Post menopausal: No Patient : No : No Control Method: Apri [facility] Medical History History of headache Family History Mother Diabetes Social History number of children: 3 current occupational status: unemployed current occupation: not currently Smoking Status: Never smoker alcohol intake: current details: social substance use type: does not use caffeine: Yes what type of physical activity do you participate in: none seatbelt use: always do you feel safe at home: Yes additional social history: Stephon- History 3 Elective abortions Hx Para 3 Spontaneous abortions Hx # Term Pregnancies Ectopic pregnancies Hx # Pregnancies Multiple births # of living children Past Pregnancies Del. Date Name GA/Weeks Outcome Route Bth Weight Infant Gen Labor Lgth Anesthesia Del Locatn Provider FOB Unknown 2002 Onesimo 40 live - full term 6lbs 14oz Male [facility] Bare Unknown Augusto live - full term Male [place] Unknown 2010 Keyla 40 live - full term 8lbs 4oz Female [facility] CHERELLE, Tizanno HPI Encounter for routine gynecological examination Details: NATA BURNS is a 44 year old who presents for annual exam.sons graduated and owrking, dtr ust finished softball. coping appropriratley after loss of Last PAP: 02/27/2023 - normal History of abnormal PAP: Last mammogram: done today History of abnormal mammogram: Colon cancer screening: has not had done yet Other preventative health care screenings: No PCP Female Reproductive History Cycle Length: 21-35 Bleeding Duration: 5 Questions: metorrhagia: No, sexually active: Yes, dyspareunia: No and PCB: No Menopausal Symptoms: No hot flashes, No night sweats, No weight change, Yes moodchanges, No difficulty concentrating, Yes sleep problems and No change in libido ROS Const Constitutional: Reports as per HPI; Denies fatigue, increased appetite, poor appetite, night sweats, weight gain or weight loss Cardio Card: Denies chest pain Resp Resp: Denies cough or dyspnea GI GI: Reports as per HPI; Denies abdominal pain, bloating, constipation, nausea or vomiting : Reports as per HPI and other; Denies difficulty voiding, dysuria, hematuria, hot flashes, nipple discharge, pelvic pain, prolapse symptoms, urinary frequency, urinary incontinence, urinaryurgency, vaginal discharge, vaginal dryness, vaginal odor or vaginal pruritus Skin Skin/Breast: Denies changing lesions, breast mass, breast pain, breast skin changes or nipple discharge Psych Psych: Denies anxiety, change in libido, depression or difficulty concentrating Exam Const General: cooperative, healthy appearing, comfortable, no acute distress, well developed and well groomed [facility] Head: normal to inspection and normocephalic Ears: hearing grossly normal bilaterally and external ears normal Nose: external nose normal Face and sinus: normal facial exam Neck Neck: normal visual inspection, full ROM and no lymphadenopathy Thyroid: thyroid normal Chest Chest palpation & inspection: normal inspection of the chest Breast inspection: normal inspection of the breasts and normal inspection of theaxillae Breast palpation: palpation of the breasts abnormal (increased density right upper), normal palpation of the axillae and no axillary lymphadenopathy Resp Effort & Inspection: normal respiratory effort GI Inspection: normal to inspection and non-distended Palpation: soft, no hepatosplenomegaly and no guarding General: bladder normal to palpation External Female Exam: normal external appearance, normal appearance of the urethra and no lesions Urethra: normal appearance of the urethra and normal palpation Speculum Exam - Vagina: normal appearance of the vagina and normal vaginal discharge Speculum Exam - Cervix: normal appearance of the cervix, no cervical discharge, no lesions and nontender Bimanual Exam- Vagina & Uterus: normal bimanual exam, uterine size normal, bladder normal to palpation, No tender, uterine mobility normal, consistency normal, non-tender and no cervical motion tenderness Bimanual Exam- Adnexa, other: normal adnexae, no masses and non-tender Skin General: no rashes or lesions noted Neuro General: patient alert, moves all extremities and no focal motor deficits Extrem General: normal to inspection and no pedal edema Psych Appearance: grossly normal Mental Status: mental status grossly normal Affect: normal affect Speech and Movement: speech and movement normal Attitude: cooperative Coding Level of Care Code Off vis,est,prev 40-64yrs Diagnoses Encounter for gynecological examination without abnormal finding Z01.419 Gynecological examination findings: abnormal findings ABSENT Assessment and Plan Assessment and Plan (1) Encounter for routine gynecological examination: Qualifiers: Gynecological examination findings: abnormal findings ABSENT Qualified Code(s): Z01.419 - Encounter for gynecological examination (general) (routine) without abnormal findings Plan Cervical cancer screening: pap up to date Breast cancer screening: mamm other health maintenance examination reviewed and orders placed if needed. Encouraged maintenance of a healthy weight and active lifestyle and handout given. Annual exam handout including recommendations for good health guidelines, Calcium/vitamin D recommendations, and basic screening information given. Problem list up to date, see problem list details for any additional plan information. Follow up in one year for annual health maintenance exam or sooner if needed. 03/05/25 1138 <Electronically signed by Vanessa wang MD> Date _ Vanessa Owens MD Cosigner Signature: Date (if applicable) CC: ~ [facility] Work Phone: Reason for referral (narrative)No reason for referral information availableSt. 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) March 05, 2025 11:05 am Reason for Visit Admit Date Encounter for routine gynecological exam ination March 05, 2025 11:05am Summary Purpose Family History No Family History Records Found Advance Directives No Advanced Directives Records FoundNo Advanced Directives Records Found Additional Source Comments Source Comments (unrecognize d section and content) In the event this informatio n is protected by the Federal Confidentiality of Alcohol and Drug Abuse Patient Records regulations: The Federal rules restrict any use of the information to criminally investigate or prosecute any alcohol or drug abuse patient.[facility] Hospital[facility] the event this information is protected by the Federal Confidentiality of Alcohol and Drug Abuse Patient Records regulations: The Federal rules restrict any use of the information to criminally investigate or prosecute any alcohol or drug abuse patient.[facility] Reason for Visit (unrecogniz ed section and content) Reason Comments Insurance Physical Reason Comments Results Orders Care Teams (unrecognized sec tion and content) 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 Ayush Duarte III, MD Family Provider Active No Primary Care Physician Primary Care Provider Active Team Status: Inactive Member Role Status Dates No Primary Care Physician Primary Care Provider, Refer ring Provider Active Dr. Vanessa Owens MD Attending Provider Active Team Status: Inactive Member Role Status Dates No Primary Care Physician Primary Care Provider Active Dr. Vanessa Owens MD Attending Provider, Referr ing Provider Active Team Status: Active Member Role/Relationship Status Dates No Primary Care Physician Primary Care Provider Active Team Status: Active Member Role/Relationship Status Dates No Primary Care Physician Primary Care Provider Active Start: March 05, 2025 Dr. Vanessa Owens MD Attending Provider Active Start: March 05, 2025 Dr. Vanessa Owens MD Referring Provider Active Start: March 05, 2025 Team Status: Inactive Member Role/Relationship Status Dates No Primary Care Physician Primary Care Provider Active Start: March 05, 2025 End: March 05, 2025 No Primary Care Physician Referring Provider Active Start: March 05, 2025 End: March 05, 2025 Dr. Vanessa Owens MD Attending Provider Active Start: March 05, 2025 End: March 05, 2025 Goals (unrecognized section and content) Goals may be documented in a n alternate sectionGoals may be documented in an alternate sectionGoals may be documented in an alternate section INFORMATION SOURCE (unrecogn ized section and content) DATE CREATED AUTHOR 02/15/2022 [facility] DATE CREATED AUTHOR AUTHOR'S ORGANIZ ATION 03/03/2025 [facility] FOR RECORDS PERTAINING TO PATIENTS WHO ARE OR HAVE BEEN ENROLLED IN A CHEMICAL DEPENDENCY/SUBSTANCEABUSE PROGRAM, SOME INFORMATION MAY BE OMITTED. This clinical summary was aggregated from multiple sources. Caution should be exercised in using it in the provision of clinical care. This summary normalizes information from multiple sources, and as a consequence, information in this document may materially change the coding, format and clinical context of patient data. In addition, data may be omitted in some cases. CLINICAL DECISIONS SHOULD BE BASED ON THE PRIMARY CLINICAL RECORDS. [employer] provides no warranty or guarantee of the accuracy or completeness of information in this document.
== END | disposition home or self-care (01) ==
LOC: OPBI 10:38
PROVIDERS: Referring Provider Obstetrics & Gynecology; Visit Provider Obstetrics & Gynecology
DX: Z12.31 Encounter for screening mammogram for malignant neoplasm of breast (principal)
CPT/HCPCS: 77063; 77067